=== PATIENT | female | born 1995 | race African-American/Black ===

== ENCOUNTER 2017-04-18 02:27 | Emergency (ER) | payer OTHER ==
[~2017-04-18] VITALS: Ht 175.2 cm; Wt 63.5 kg
[~2017-04-18 02:27] MED LIST: AMOXICILLIN500 M2 PO; BACTRIM DS 8001 TA1 PO; BIRTH CONTROL PILL; CLARITIN10 MG PO; DEPO PROVER150 MG/M1 IM; FLONASE ALLERG9.9 ML NAS; MACROBID100 M1 PO; Motrin,Rufen800 MG PO; NAPROSYN500 MG PO; OMEPRAZOLE20 M2 PO; PEPCID20 MG PO; PREDNISONE10 MG PO; ROBITUSSIN AC 110 ML PO; ZANTAC 150150 MG PO; ZOFRAN ODT4 MG SL; Zofran4 MG PO
== END 2017-04-18 02:57 | disposition home or self-care (01) ==
LOC: ED 02:27
DX: S00.93XA Contusion of unspecified part of head, initial encounter (principal); K21.9 Gastro-esophageal reflux disease without esophagitis; Y04.0XXA Assault by unarmed brawl or fight, initial encounter; Y93.89 Activity, other specified; Y92.89 Other specified places as the place of occurrence of the external cause; Y99.8 Other external cause status

== ENCOUNTER → 2017-05-06 | Outpatient (CLI) | payer OTHER ==
[2017-05-06 12:22] LABS: HEMOGLOBIN 14.6 g/dl (12.0-16.0); MEAN CORPUSCULAR HGB 31.5 pg (27.0-31.0); MEAN CORPUSCULAR HGB CONC 33.2 g/dl (33.0-37.0); RED BLOOD COUNT 4.63 10*6/uL (4.10-5.10)
[2017-05-06 12:42] LABS: ALBUMIN 3.7 gm/dl (3.1-4.5); ALKALINE PHOSPHATASE 67 U/L (45-117); BUN 6 mg/dl (7-24); CHLORIDE 108 mmol/L (98-107); CHOLESTEROL 105 mg/dL (<200); CREATININE 0.78 mg/dL (0.55-1.02); HDL CHOLESTEROL 41 mg/dl (40-60); LDL CHOLESTEROL 54 mg/dL (9-159); SGOT/AST 13 IU/L (3-35); SGPT/ALT 15 U/L (12-78); SODIUM 140 mmol/L (136-145); TOTAL PROTEIN 7.2 gm/dL (6.4-8.2); TRIGLYCERIDES 48 mg/dl (<150); VLDL CHOLESTEROL 10 mg/dL (6-40)
== END | disposition home or self-care (01) ==
LOC: LAB 11:49
PROVIDERS: Pediatrics
DX: Z00.00 Encounter for general adult medical examination without abnormal findings (principal); R73.09 Other abnormal glucose

== ENCOUNTER → 2017-11-02 | Outpatient (CLI) | payer OTHER ==
[2017-11-02 15:59] LABS: HEMATOCRIT 44.4 % (37.0-47.0); HEMOGLOBIN 14.5 g/dl (12.0-16.0); MEAN CELL VOLUME 96.5 fl (81.0-99.0); MEAN CORPUSCULAR HGB 31.5 pg (27.0-31.0); MEAN CORPUSCULAR HGB CONC 32.7 g/dl (33.0-37.0); MEAN PLATELET VOLUME 10.8 fl (9.6-12.3); RED BLOOD COUNT 4.6 10*6/uL (4.10-5.10); RED CELL DISTRI WIDTH 12.8 % (0-14.5); WHITE BLOOD COUNT 7.2 10*3/uL (4.8-10.8)
[2017-11-02 16:28] LABS: ALBUMIN 3.8 gm/dl (3.1-4.5); BUN 6 mg/dl (7-24); CHLORIDE 106 mmol/L (98-107); CHOLESTEROL 84 mg/dL (<200); CREATININE 0.91 mg/dL (0.55-1.02); POTASSIUM 3.9 mmol/L (3.5-5.1); SGOT/AST 10 IU/L (3-35); SGPT/ALT 15 U/L (12-78); SODIUM 141 mmol/L (136-145); TOTAL PROTEIN 7.1 gm/dL (6.4-8.2); TRIGLYCERIDES 47 mg/dl (<150); VLDL CHOLESTEROL 9 mg/dL (6-40)
[2017-11-02 16:34] LABS: ALKALINE PHOSPHATASE 60 U/L (45-117); FREE T4 1.03 ng/dl (0.76-1.46); HDL CHOLESTEROL 42 mg/dl (40-60); LDL CHOLESTEROL 33 mg/dL (9-159)
== END | disposition home or self-care (01) ==
LOC: LAB 15:24
PROVIDERS: Family Medicine
DX: Z13.220 Encounter for screening for lipoid disorders (principal); N91.2 Amenorrhea, unspecified; R53.83 Other fatigue; R63.4 Abnormal weight loss; R79.89 Other specified abnormal findings of blood chemistry

== ENCOUNTER 2018-03-12 15:40 | Emergency (ER) | payer OTHER ==
[~2018-03-12] VITALS: Ht 172.7 cm; Wt 61.2 kg
[2018-03-12 16:01] LABS: BILIRUBIN NEGATIVE (NEGATIVE); BLOOD NEGATIVE (NEGATIVE); CLARITY CLEAR (CLEAR); COLOR YELLOW (YELLOW); GLUCOSE NEGATIVE (NEGATIVE); KETONE TRACE (NEGATIVE); LEUKO ESTERASE NEGATIVE (NEGATIVE); NITRITE NEGATIVE (NEGATIVE)
[2018-03-12 16:07] LABS: RBC 0-2 rbc/hpf (0-2)
[2018-03-12 16:08] LABS: BACTERIA 2+; MUCOUS TRACE; WBC 0-2 wbc/hpf (0-5)
[2018-03-12 16:23] LABS: BASO % 0.5 % (0.0-1.0); EOS # 0.2 10*3/uL (0.0-0.4); EOS % 2.5 % (1.0-4.0); HEMATOCRIT 39.1 % (37.0-47.0); HEMOGLOBIN 12.8 g/dl (12.0-16.0); LYMPH % 34.2 % (27.0-41.0); MEAN CELL VOLUME 94.2 fl (81.0-99.0); MEAN CORPUSCULAR HGB 30.8 pg (27.0-31.0); MEAN CORPUSCULAR HGB CONC 32.7 g/dl (33.0-37.0); MEAN PLATELET VOLUME 10.9 fl (9.6-12.3); MONO # 0.7 10*3/uL (0.1-1.0); MONO % 7.4 % (3.0-9.0); NEUT # 4.9 10*3/uL (2.3-7.9); NEUT % 55.2 % (47.0-73.0); PLATELET COUNT AUTOMATED 308 10*3/uL (130-400); RED BLOOD COUNT 4.15 10*6/uL (4.10-5.10); RED CELL DISTRI WIDTH 12.3 % (0-14.5); WHITE BLOOD COUNT 8.8 10*3/uL (4.8-10.8)
[2018-03-12 16:30] LABS: ALKALINE PHOSPHATASE 48 U/L (45-117); BUN 10 mg/dl (7-24); CHLORIDE 105 mmol/L (98-107); CREATININE 0.83 mg/dL (0.55-1.02); LIPASE 105 U/L (73-393); POTASSIUM 3.9 mmol/L (3.5-5.1); SGOT/AST 17 IU/L (3-35); SGPT/ALT 17 U/L (12-78); SODIUM 138 mmol/L (136-145); TOTAL PROTEIN 7.5 gm/dL (6.4-8.2)
[2018-03-12] MEDS ORDERED: AMINOPHYLLIN200 MG PO (16:45)
== END 2018-03-12 16:52 | disposition home or self-care (01) ==
LOC: ED 15:40
PROVIDERS: Physician Assistant
DX: N39.0 Urinary tract infection, site not specified (principal)

== ENCOUNTER → 2018-10-03 | Outpatient (CLI) | payer OTHER ==
[~2018-10-03] MED LIST changes: +AMINOPHYLLIN200 MG PO; +ANTIBIOTIC28.4 GM T; +ATIVAN0.5 MG PO; +CEPHALEXIN500 M1 PO; +DECADRON PO; +ZOFRAN4 MG PO
[2018-10-03 13:21] LABS: HEMOGLOBIN 14.8 g/dl (12.0-16.0); MEAN CELL VOLUME 95.4 fl (81.0-99.0); MEAN CORPUSCULAR HGB 30.7 pg (27.0-31.0); MEAN CORPUSCULAR HGB CONC 32.2 g/dl (33.0-37.0); RED BLOOD COUNT 4.82 10*6/uL (4.10-5.10); RED CELL DISTRI WIDTH 12.9 % (0-14.5); WHITE BLOOD COUNT 6.7 10*3/uL (4.8-10.8)
[2018-10-03 13:40] LABS: ALBUMIN 3.9 gm/dl (3.1-4.5); ALKALINE PHOSPHATASE 64 U/L (45-117); BUN 9 mg/dl (7-24); CHLORIDE 107 mmol/L (98-107); CREATININE 0.88 mg/dL (0.55-1.02); POTASSIUM 4.1 mmol/L (3.5-5.1); SGOT/AST 14 IU/L (3-35); SGPT/ALT 15 U/L (12-78); SODIUM 138 mmol/L (136-145); TOTAL PROTEIN 7.8 gm/dL (6.4-8.2)
== END | disposition home or self-care (01) ==
LOC: LAB 12:24
PROVIDERS: Family Medicine
DX: N91.2 Amenorrhea, unspecified (principal); R53.83 Other fatigue

== ENCOUNTER → 2018-12-08 | Outpatient (CLI) | payer OTHER | END | disposition home or self-care (01) | LOC: LAB 09:28 | DX: N91.1 Secondary amenorrhea (principal); R10.2 Pelvic and perineal pain; R19.00 Intra-abdominal and pelvic swelling, mass and lump, unspecified site ==

== ENCOUNTER → 2019-01-27 | Outpatient (CLI) | payer OTHER ==
[2019-01-27 10:45] LABS: BASO % 0.7 % (0.0-1.0); EOS # 0.1 10*3/uL (0.0-0.4); EOS % 2.2 % (1.0-4.0); HEMATOCRIT 39.9 % (37.0-47.0); HEMOGLOBIN 12.9 g/dl (12.0-16.0); LYMPH % 16.9 % (27.0-41.0); MEAN CELL VOLUME 92.6 fl (81.0-99.0); MEAN CORPUSCULAR HGB 29.9 pg (27.0-31.0); MEAN CORPUSCULAR HGB CONC 32.3 g/dl (33.0-37.0); MEAN PLATELET VOLUME 11.3 fl (9.6-12.3); MONO # 0.3 10*3/uL (0.1-1.0); MONO % 5.9 % (3.0-9.0); NEUT # 4.2 10*3/uL (2.3-7.9); NEUT % 72.8 % (47.0-73.0); PLATELET COUNT AUTOMATED 120 10*3/uL (130-400); RED BLOOD COUNT 4.31 10*6/uL (4.10-5.10); RED CELL DISTRI WIDTH 12.7 % (0-14.5); WHITE BLOOD COUNT 5.8 10*3/uL (4.8-10.8)
[2019-01-27 11:15] LABS: ALKALINE PHOSPHATASE 73 U/L (45-117); BUN 9 mg/dl (7-24); CHLORIDE 106 mmol/L (98-107); CREATININE 0.61 mg/dL (0.55-1.02); SGOT/AST 10 IU/L (3-35); SGPT/ALT 33 U/L (12-78); SODIUM 140 mmol/L (136-145); TOTAL PROTEIN 7.3 gm/dL (6.4-8.2)
== END | disposition home or self-care (01) ==
LOC: LAB 10:04
DX: D27.0 Benign neoplasm of right ovary (principal)

== ENCOUNTER → 2019-02-03 | Outpatient (CLI) | payer OTHER ==
[2019-02-03 10:35] LABS: HEMATOCRIT 40.6 % (37.0-47.0); MEAN CELL VOLUME 96.2 fl (81.0-99.0); MEAN CORPUSCULAR HGB 30.8 pg (27.0-31.0); MEAN PLATELET VOLUME 10.2 fl (9.6-12.3); NUCLEATED RED BLOOD CELL 0.1 % (0.0-0.0); PLATELET COUNT AUTOMATED 183 10*3/uL (130-400); RED BLOOD COUNT 4.22 10*6/uL (4.10-5.10); RED CELL DISTRI WIDTH 14.6 % (0-14.5); WHITE BLOOD COUNT 22.4 10*3/uL (4.8-10.8)
[2019-02-03 10:55] LABS: PLATELET SUFFICIENCY NORMAL (NORMAL); TOTAL CELLS COUNTED 100 #CELLS; TOXIC GRANULATION SLIGHT
[2019-02-03 10:58] LABS: DOHLE BODIES FEW
[2019-02-03 11:03] LABS: ALBUMIN 3.9 gm/dl (3.1-4.5); ALKALINE PHOSPHATASE 151 U/L (45-117); BUN 9 mg/dl (7-24); CHLORIDE 106 mmol/L (98-107); CREATININE 0.75 mg/dL (0.55-1.02); POTASSIUM 4.4 mmol/L (3.5-5.1); SGOT/AST 9 IU/L (3-35); SODIUM 142 mmol/L (136-145); TOTAL PROTEIN 7.6 gm/dL (6.4-8.2)
[2019-02-03 11:12] LABS: SGPT/ALT 20 U/L (12-78)
== END | disposition home or self-care (01) ==
LOC: LAB 09:36
PROVIDERS: Obstetrics & Gynecology
DX: D27.0 Benign neoplasm of right ovary (principal)

== ENCOUNTER → 2019-02-24 | Outpatient (CLI) | payer OTHER ==
[2019-02-24 10:56] LABS: HEMATOCRIT 36.2 % (37.0-47.0); MEAN CELL VOLUME 96.8 fl (81.0-99.0); MEAN PLATELET VOLUME 9.8 fl (9.6-12.3); NUCLEATED RED BLOOD CELL 0.1 10*3/uL (0.0-0.0); NUCLEATED RED BLOOD CELL 0.2 % (0.0-0.0); PLATELET COUNT AUTOMATED 146 10*3/uL (130-400); RED BLOOD COUNT 3.74 10*6/uL (4.10-5.10); RED CELL DISTRI WIDTH 16.2 % (0-14.5)
[2019-02-24 11:01] LABS: HEMOGLOBIN 11.6 g/dl (12.0-16.0)
[2019-02-24 11:23] LABS: ALBUMIN 4.1 gm/dl (3.1-4.5); ALKALINE PHOSPHATASE 133 U/L (45-117); BUN 8 mg/dl (7-24); CHLORIDE 105 mmol/L (98-107); CREATININE 0.74 mg/dL (0.55-1.02); POTASSIUM 4.4 mmol/L (3.5-5.1); SGOT/AST 15 IU/L (3-35); SGPT/ALT 20 U/L (12-78); SODIUM 141 mmol/L (136-145); TOTAL PROTEIN 7.6 gm/dL (6.4-8.2)
[2019-02-24 11:28] LABS: ATYPICAL LYMPHS 1 % (0-0); TOTAL CELLS COUNTED 100 #CELLS
[2019-02-24 11:29] LABS: PLATELET SUFFICIENCY NORMAL (NORMAL); POLYCHROMASIA SLIGHT
[2019-02-24 11:58] LABS: WHITE BLOOD COUNT 49.5 10*3/uL (4.8-10.8)
[2019-02-24 11:59] LABS: BLASTS 2 % (0-0)
== END | disposition home or self-care (01) ==
LOC: LAB 10:27
PROVIDERS: Obstetrics & Gynecology
DX: D27.0 Benign neoplasm of right ovary (principal)

== ENCOUNTER → 2019-03-23 | Outpatient (CLI) | payer OTHER | END | disposition home or self-care (01) | LOC: LAB 12:42 | DX: D27.0 Benign neoplasm of right ovary (principal) ==

== ENCOUNTER → 2019-03-24 | Outpatient (CLI) | payer OTHER | END | disposition home or self-care (01) | LOC: CT 01:52 | DX: D27.0 Benign neoplasm of right ovary (principal); Z90.721 Acquired absence of ovaries, unilateral ==

== ENCOUNTER → 2019-07-13 | Outpatient (CLI) | payer OTHER ==
[2019-07-14 06:07] LABS: DHEA SULFATE 139.4 ug/dL (110.0-431.7)
[2019-07-14 09:07] LABS: AFP TUMOR MARKER 002253 1.1 ng/mL (0.0-8.3)
== END | disposition home or self-care (01) ==
LOC: LAB 12:14
PROVIDERS: Obstetrics & Gynecology
DX: D27.0 Benign neoplasm of right ovary (principal)

== ENCOUNTER → 2019-10-26 | Outpatient (CLI) | payer OTHER | END | disposition home or self-care (01) | LOC: CT 10-19 10:00 | DX: D27.0 Benign neoplasm of right ovary (principal) ==

== ENCOUNTER 2019-12-16 12:33 | Emergency (ER) | payer OTHER ==
[~2019-12-16] VITALS: Ht 175.2 cm; Wt 61.2 kg
[~2019-12-16 12:33] MED LIST changes: -PRENATAL TABLE1 EAC2 PO
[2019-12-16 13:11] LABS: BILIRUBIN NEGATIVE (NEGATIVE); BLOOD NEGATIVE (NEGATIVE); CLARITY CLOUDY (CLEAR); COLOR YELLOW (YELLOW); GLUCOSE NEGATIVE (NEGATIVE); KETONE NEGATIVE (NEGATIVE); LEUKO ESTERASE 1+ (NEGATIVE); NITRITE NEGATIVE (NEGATIVE); PH 6.5 (5.0-9.0); SPECIFIC GRAVITY 1.015 (1.005-1.030); UROBILINOGEN < 0.2 E.U./dl (0.2-1.0)
[2019-12-16 13:12] LABS: BACTERIA 2+; WBC 16-20 wbc/hpf (0-5)
[2019-12-16 13:30] LABS: BASO % 0.4 % (0.0-1.0); EOS # 0.1 10*3/uL (0.0-0.4); EOS % 1.4 % (1.0-4.0); HEMATOCRIT 38.4 % (37.0-47.0); LYMPH # 1.6 10*3/uL (1.3-4.4); LYMPH % 18.6 % (27.0-41.0); MEAN CORPUSCULAR HGB 31.8 pg (27.0-31.0); MEAN CORPUSCULAR HGB CONC 33.1 g/dl (33.0-37.0); MEAN PLATELET VOLUME 10.2 fl (9.6-12.3); MONO # 0.5 10*3/uL (0.1-1.0); NEUT # 6.2 10*3/uL (2.3-7.9); NEUT % 73.4 % (47.0-73.0); PLATELET COUNT AUTOMATED 256 10*3/uL (130-400); RED CELL DISTRI WIDTH 12.3 % (0-14.5); WHITE BLOOD COUNT 8.4 10*3/uL (4.8-10.8)
[2019-12-16] MEDS ORDERED: CEPHALEXIN500 M1 PO (13:30)
[2019-12-16] MEDS ORDERED: PRENATAL TABLE1 EAC2 PO (13:30)
[2019-12-16 13:44] LABS: ALBUMIN 3.5 gm/dl (3.1-4.5); ALKALINE PHOSPHATASE 46 U/L (45-117); BUN 9 mg/dl (7-24); CHLORIDE 108 mmol/L (98-107); POTASSIUM 3.8 mmol/L (3.5-5.1); SGOT/AST 13 IU/L (3-35); SGPT/ALT 17 U/L (12-78); SODIUM 139 mmol/L (136-145); TOTAL PROTEIN 7.2 gm/dL (6.4-8.2)
== END 2019-12-16 14:09 | disposition home or self-care (01) ==
LOC: ED 12:33
PROVIDERS: Nurse Practitioner Family
DX: O23.41 Unspecified infection of urinary tract in pregnancy, first trimester (principal); K21.9 Gastro-esophageal reflux disease without esophagitis; Z3A.01 Less than 8 weeks gestation of pregnancy; Z88.8 Allergy status to other drugs, medicaments and biological substances; Z79.2 Long term (current) use of antibiotics; Z85.43 Personal history of malignant neoplasm of ovary

== ENCOUNTER → 2019-12-16 | Outpatient (CLI) | payer OTHER ==
[~2019-12-16] MED LIST changes: +PRENATAL TABLE1 EAC2 PO
[2019-12-17 06:36] LABS: AFP TUMOR MARKER 8.5 ng/mL (0.0-8.3)
[2019-12-17 07:07] LABS: DHEA SULFATE 100.6 ug/dL (110.0-431.7); SEX HORMONE BINDING GLOBULIN 192.4 nmol/L (24.6-122.0)
[2019-12-17 08:03] LABS: ALBUMIN SERUM 4.4 g/dL (3.9-5.0)
[2019-12-20 08:04] LABS: TESTOSTERONE, TOTAL 27.4 ng/dL (10.0-55.0)
== END | disposition home or self-care (01) ==
LOC: LAB 12:37
PROVIDERS: Obstetrics & Gynecology
DX: D27.0 Benign neoplasm of right ovary (principal)

== ENCOUNTER → 2020-01-08 | Outpatient (CLI) | payer OTHER ==
[~2020-01-08] MED LIST changes: +PRENATAL TABLE1 EAC2 PO
== END | disposition home or self-care (01) ==
LOC: US 09:30
DX: Z34.91 Encounter for supervision of normal pregnancy, unspecified, first trimester (principal); Z3A.13 13 weeks gestation of pregnancy

== ENCOUNTER → 2020-04-22 | Outpatient (CLI) | payer OTHER ==
[2020-04-23 09:10] LABS: DHEA SULFATE 99.4 ug/dL (110.0-431.7)
[2020-04-24 11:09] LABS: TESTOSTERONE FREE, (DIRECT) 0.7 pg/mL (0.0-4.2)
== END | disposition home or self-care (01) ==
LOC: LAB 13:25
PROVIDERS: Obstetrics & Gynecology
DX: D27.0 Benign neoplasm of right ovary (principal); Z85.43 Personal history of malignant neoplasm of ovary

== ENCOUNTER 2020-05-08 08:48 | Emergency (ER) | payer OTHER ==
[~2020-05-08] VITALS: Wt 71.7 kg
== END 2020-05-08 11:28 | disposition home or self-care (01) ==
LOC: ED 08:48
DX: S60.051A Contusion of right little finger without damage to nail, initial encounter (principal); Z88.8 Allergy status to other drugs, medicaments and biological substances; W23.0XXA Caught, crushed, jammed, or pinched between moving objects, initial encounter; Y93.89 Activity, other specified; Y92.89 Other specified places as the place of occurrence of the external cause; Y99.8 Other external cause status

== ENCOUNTER 2020-07-04 15:15 | Emergency (ER) | payer OTHER ==
[~2020-07-04] VITALS: Ht 175.2 cm; Wt 74.8 kg
[2020-07-04 16:06] LABS: BILIRUBIN Negative (Negative); BLOOD Negative (Negative); CLARITY Clear (Clear); COLOR Yellow (Yellow); GLUCOSE Negative (Negative); KETONE Negative (Negative); LEUKO ESTERASE 2+ (Negative); NITRITE Negative (Negative); UROBILINOGEN 0.2 E.U./dl (0.0-1.0)
== END 2020-07-04 16:43 | disposition home or self-care (01) ==
LOC: ED 15:15
PROVIDERS: Emergency Medicine
DX: Z34.93 Encounter for supervision of normal pregnancy, unspecified, third trimester (principal); Z88.8 Allergy status to other drugs, medicaments and biological substances; Z79.899 Other long term (current) drug therapy; Z3A.38 38 weeks gestation of pregnancy

== ENCOUNTER → 2020-10-17 | Outpatient (CLI) | payer OTHER ==
[2020-10-18 08:07] LABS: AFP TUMOR MARKER 1.8 ng/mL (0.0-8.3)
[2020-10-19 02:06] LABS: TESTOSTERONE FREE, (DIRECT) 0.4 pg/mL (0.0-4.2)
== END | disposition home or self-care (01) ==
LOC: CT 10-10 08:00 → LAB 14:02
PROVIDERS: ATTEND Obstetrics & Gynecology
DX: D27.0 Benign neoplasm of right ovary (principal)

== ENCOUNTER → 2021-03-05 | Outpatient (CLI) | payer OTHER ==
[2021-03-06 08:08] LABS: AFP TUMOR MARKER 1.4 ng/mL (0.0-8.3)
== END | disposition home or self-care (01) ==
LOC: LAB 13:43
PROVIDERS: ATTEND Obstetrics & Gynecology
DX: D27.0 Benign neoplasm of right ovary (principal)

== ENCOUNTER → 2021-04-15 | Outpatient (CLI) | payer OTHER | END | disposition home or self-care (01) | LOC: CT 13:53 | PROVIDERS: ATTEND Obstetrics & Gynecology | DX: D27.0 Benign neoplasm of right ovary (principal) ==

== ENCOUNTER → 2021-04-23 | Outpatient (CLI) | payer OTHER ==
[2021-04-23 08:20] LABS: MEAN CELL VOLUME 92.9 fl (81.0-99.0); MEAN CORPUSCULAR HGB 30.2 pg (27.0-31.0); MEAN CORPUSCULAR HGB CONC 32.6 g/dl (33.0-37.0); MEAN PLATELET VOLUME 10.8 fl (9.6-12.3); RED BLOOD COUNT 4.2 10*6/uL (4.10-5.10); RED CELL DISTRI WIDTH 12.8 % (0-14.5); WHITE BLOOD COUNT 7.2 10*3/uL (4.8-10.8)
[2021-04-23 08:42] LABS: ALBUMIN 3.9 gm/dl (3.1-4.5); ALKALINE PHOSPHATASE 48 U/L (45-117); BUN 13 mg/dl (7-24); CHLORIDE 107 mmol/L (98-107); CREATININE 0.73 mg/dL (0.55-1.02); POTASSIUM 4.2 mmol/L (3.5-5.1); SGOT/AST 10 IU/L (3-35); SGPT/ALT 16 U/L (12-78); SODIUM 139 mmol/L (136-145); TOTAL PROTEIN 7.5 gm/dL (6.4-8.2)
[2021-04-28 03:05] LABS: TESTOSTERONE FREE, (DIRECT) 1.4 pg/mL (0.0-4.2)
== END | disposition home or self-care (01) ==
LOC: LAB 08:03
PROVIDERS: ATTEND Family Medicine
DX: L68.0 Hirsutism (principal); R53.83 Other fatigue; Z85.43 Personal history of malignant neoplasm of ovary

== ENCOUNTER 2024-03-01 21:54 | Emergency (ER) | payer MEDICAID ==
[~2024-03-01] VITALS: Ht 175.2 cm; Wt 62.6 kg
[2024-03-01 22:28] LABS: BASO # 0.1 10*3/uL (0.0-0.1); BASO % 0.7 % (0.0-1.0); EOS # 0.2 10*3/uL (0.0-0.4); EOS % 1.4 % (1.0-4.0); HEMATOCRIT 40.2 % (37.0-47.0); LYMPH # 2.3 10*3/uL (1.3-4.4); LYMPH % 20.7 % (27.0-41.0); MEAN CELL VOLUME 94.8 fl (81.0-99.0); MEAN CORPUSCULAR HGB 30.4 pg (27.0-31.0); MEAN CORPUSCULAR HGB CONC 32.1 g/dl (33.0-37.0); MONO # 0.9 10*3/uL (0.1-1.0); MONO % 7.9 % (3.0-9.0); NEUT # 7.6 10*3/uL (2.3-7.9); PLATELET COUNT AUTOMATED 388 10*3/uL (130-400); RED BLOOD COUNT 4.24 10*6/uL (4.10-5.10); RED CELL DISTRI WIDTH 13.5 % (0-14.5); WHITE BLOOD COUNT 11.1 10*3/uL (4.8-10.8)
[2024-03-01 22:34] LABS: BILIRUBIN Negative (Negative); BLOOD 1+ (Negative); CLARITY Clear (Clear); COLOR Dark Yellow (Yellow); GLUCOSE Negative (Negative); KETONE 3+ (Negative); LEUKO ESTERASE Trace (Negative); NITRITE Negative (Negative); PH 6.5 (4.5-8.0); SPECIFIC GRAVITY >= 1.030 (1.001-1.030)
[2024-03-01 22:56] LABS: BACTERIA 1+; EPITHELIAL CELLS 21-30
[2024-03-01 23:11] LABS: BUN 8 mg/dl (9-23); CHLORIDE 106 mmol/L (98-107); POTASSIUM 3.5 mmol/L (3.4-5.1)
[2024-03-01] MEDS ORDERED: CEPHALEXIN500 M1 PO (23:13)
== END 2024-03-01 23:18 | disposition home or self-care (01) ==
LOC: ED 21:54
PROVIDERS: Nurse Practitioner
DX: O20.9 Hemorrhage in early pregnancy, unspecified (principal); Z88.8 Allergy status to other drugs, medicaments and biological substances; Z3A.01 Less than 8 weeks gestation of pregnancy

== ENCOUNTER 2024-03-03 09:26 | Emergency (ER) | payer MEDICAID ==
[~2024-03-03] VITALS: Ht 175.2 cm; Wt 59.0 kg
== END 2024-03-03 12:43 | disposition home or self-care (01) ==
LOC: ED 09:26
DX: O46.91 Antepartum hemorrhage, unspecified, first trimester (principal); K21.9 Gastro-esophageal reflux disease without esophagitis; Z3A.01 Less than 8 weeks gestation of pregnancy; Z98.890 Other specified postprocedural states

== ENCOUNTER 2024-04-23 22:51 | Emergency (ER) | payer MEDICAID ==
[~2024-04-23] VITALS: Ht 175.2 cm; Wt 62.6 kg
[2024-04-23] MEDS ORDERED: HYDROCORTISONE R ONE (23:20)
[2024-04-23] MEDS ORDERED: HYDROCORTISONE ACETATE 25 MG SUPP R ONE (23:45)
[2024-04-23] MEDS ORDERED: ANUSOL-HC25 MG R (23:52)
[2024-04-24] MEDS ORDERED: HYDROCORTISONE ACETATE 25 MG SUPP R ONE
[2024-04-24] MEDS ORDERED: ANUSOL-HC25 MG R (00:04)
== END 2024-04-24 00:06 | disposition home or self-care (01) ==
LOC: ED 22:51
DX: O22.41 Hemorrhoids in pregnancy, first trimester (principal); K21.9 Gastro-esophageal reflux disease without esophagitis; Z3A.13 13 weeks gestation of pregnancy; Z88.8 Allergy status to other drugs, medicaments and biological substances; Z98.890 Other specified postprocedural states

== ENCOUNTER 2024-11-15 20:51 | Emergency (ER) | payer MEDICAID ==
[~2024-11-15] VITALS: Ht 175.2 cm; Wt 77.1 kg
[~2024-11-15 20:51] MED LIST changes: +ANUSOL-HC25 MG R
[2024-11-15] MEDS ORDERED: B12 ACTIVE1000 MCG PO (21:09)
[2024-11-15 21:26] LABS: BILIRUBIN Negative (Negative); BLOOD Negative (Negative); CLARITY Clear (Clear); COLOR Yellow (Yellow); GLUCOSE Negative (Negative); KETONE Trace (Negative); LEUKO ESTERASE 1+ (Negative); NITRITE Negative (Negative); SPECIFIC GRAVITY 1.025 (1.001-1.030)
[2024-11-15 21:42] LABS: RBC 0-2 rbc/hpf (0-2)
[2024-11-15 21:43] LABS: BACTERIA 1+; HYALINE CAST 0-2; MUCOUS TRACE
[2024-11-15] MEDS ORDERED: Amoxicillin/Clavulanate Pota 875 MG TAB PO ONE (21:50)
[2024-11-15] MEDS ORDERED: AMOX-CLAV 875-1 EACH PO (21:54)
== END 2024-11-15 22:09 | disposition home or self-care (01) ==
LOC: ED 20:51
PROVIDERS: Internal Medicine
DX: O86.20 Urinary tract infection following delivery, unspecified (principal); N39.0 Urinary tract infection, site not specified; K21.9 Gastro-esophageal reflux disease without esophagitis; Z79.899 Other long term (current) drug therapy; Z88.8 Allergy status to other drugs, medicaments and biological substances; Z90.721 Acquired absence of ovaries, unilateral

== ENCOUNTER 2025-04-27 17:21 | Emergency (ER) | payer MEDICAID ==
[~2025-04-27] VITALS: Ht 175.2 cm; Wt 71.2 kg
[~2025-04-27 17:21] MED LIST changes: +AMOX-CLAV 875-1 EACH PO; +B12 ACTIVE1000 MCG PO
== END 2025-04-27 20:05 | disposition home or self-care (01) ==
LOC: ED 17:21
DX: M77.8 Other enthesopathies, not elsewhere classified (principal); M79.671 Pain in right foot; Z88.8 Allergy status to other drugs, medicaments and biological substances

== ENCOUNTER 2025-06-30 21:16 | Emergency (ER) | payer OTHER, MEDICAID ==
[~2025-06-30] VITALS: Ht 175.2 cm; Wt 74.8 kg
[2025-06-30] MEDS ORDERED: ACETAMINOPHEN 325 MG TAB PO ONE (21:40)
[2025-06-30] MEDS ORDERED: NAPROXEN 250 MG TAB PO ONE (21:40)
[2025-06-30] MEDS ORDERED: NAPROSYN500 MG PO (21:54)
[2025-06-30] MEDS ORDERED: METHOCARBAMOL500 M1 PO (21:54)
== END 2025-06-30 22:23 | disposition home or self-care (01) ==
LOC: ED 21:16
DX: R51.9 Headache, unspecified (principal); Z88.8 Allergy status to other drugs, medicaments and biological substances; V89.2XXA Person injured in unspecified motor-vehicle accident, traffic, initial encounter; Y93.89 Activity, other specified; Y92.488 Other paved roadways as the place of occurrence of the external cause; Y99.8 Other external cause status

== ENCOUNTER 2025-07-28 18:25 | Emergency (ER) | payer MEDICAID ==
[~2025-07-28] VITALS: Ht 175.2 cm; Wt 70.3 kg
[~2025-07-28 18:25] MED LIST changes: +METHOCARBAMOL500 M1 PO
[2025-07-28] MEDS ORDERED: CETIRIZINE10 MG PO (19:15)
[2025-07-28] MEDS ORDERED: OFLOXACIN 10 ML10 M2 OT (19:15)
[2025-07-28] MEDS ORDERED: OFLOXACIN 0.3% 5 ML BOTTLE OT ONE (19:15)
== END 2025-07-28 19:34 | disposition home or self-care (01) ==
LOC: ED 18:25
DX: H60.93 Unspecified otitis externa, bilateral (principal); H69.93 Unspecified Eustachian tube disorder, bilateral; K21.9 Gastro-esophageal reflux disease without esophagitis; Z88.8 Allergy status to other drugs, medicaments and biological substances; Z79.899 Other long term (current) drug therapy